=== PATIENT | female | born 1940 | race Caucasian/White ===

== ENCOUNTER 2017-06-22 07:58 | Emergency (ER) | payer OTHER ==
[~2017-06-22] VITALS: Ht 172.7 cm; Wt 86.2 kg
[~2017-06-22 07:58] MED LIST: CALAN80 MG; LEVSIN/SL0.125 MG SL; NEURONTIN300 MG PO; PEPCID40 MG PO; PLAVIX75 MG; TRAMADOL HCL-AP1 TAB PO; ZANTAC 2525 MG
== END 2017-06-22 09:15 | disposition home or self-care (01) ==
LOC: ER 07:58
DX: M54.2 Cervicalgia (principal); M62.838 Other muscle spasm; M54.89 Other dorsalgia

== ENCOUNTER 2018-04-07 01:06 | Emergency (ER) | payer OTHER ==
[~2018-04-07] VITALS: Ht 172.7 cm; Wt 89.8 kg
[2018-04-07] MEDS ORDERED: PEPCID COMPLET1 EACH PO (03:43)
[2018-04-07] MEDS ORDERED: ATIVAN2 MG PO (03:43)
== END 2018-04-07 04:59 | disposition home or self-care (01) ==
LOC: ER 01:06
DX: I16.1 Hypertensive emergency (principal); I10 Essential (primary) hypertension; F41.8 Other specified anxiety disorders

== ENCOUNTER 2018-07-08 14:58 | Emergency (ER) | payer OTHER ==
[~2018-07-08] VITALS: Ht 172.7 cm; Wt 86.2 kg
[~2018-07-08 14:58] MED LIST changes: +ATIVAN2 MG PO; +PEPCID COMPLET1 EACH PO
[2018-07-08] MEDS ORDERED: COZAAR25 MG (15:55)
== END 2018-07-08 17:47 | disposition home or self-care (01) ==
LOC: ER 14:58
DX: S30.0XXA Contusion of lower back and pelvis, initial encounter (principal); S00.03XA Contusion of scalp, initial encounter; W18.09XA Striking against other object with subsequent fall, initial encounter; Y93.89 Activity, other specified; Y92.012 Bathroom of single-family (private) house as the place of occurrence of the external cause; Y99.8 Other external cause status

== ENCOUNTER 2022-09-15 16:09 | Emergency (ER) | payer OTHER ==
[~2022-09-15] VITALS: Ht 172.7 cm; Wt 86.2 kg
[~2022-09-15 16:09] MED LIST changes: +COZAAR25 MG
== END 2022-09-15 20:09 | disposition home or self-care (01) ==
LOC: ER 16:09
DX: M54.50 Low back pain, unspecified (principal)